=== PATIENT | female | born 1965 | race Caucasian/White ===

== ENCOUNTER 2016-08-27 08:23 | Day surgery (SDC) | payer BC ==
[2016-08-25 12:30] VITALS: BMI 28.8
[~2016-08-27 08:23] MED LIST: LACTATED RINGERS 1,000 ML IV SCH; LIDOCAINE 1% 20 ML VIAL (10MG/ML) FOR IV START INTRADERMA PRN
[2016-08-27] MEDS ORDERED: LIDOCAINE 1% 20 ML VIAL (10MG/ML) FOR IV START INTRADERMA ONE (08:34)
[2016-08-27] MEDS ORDERED: LACTATED RINGERS 1,000 ML IV ONE (08:34)
[2016-08-27 08:39] VITALS: RESP 18; TEMP 98.7
[2016-08-27 08:50] LABS: Glucose,Whole Blood 276 mg/dL (75-99)
[2016-08-27] MEDS ORDERED: PROPOFOL 10 MG/ML 20 ML VIAL IV ONE (08:52)
[2016-08-27] MEDS ORDERED: LABETALOL 5 MG/ML VIAL MDV ONE (08:52)
[2016-08-27] MEDS ORDERED: LIDOCAINE 1% INJ 10MG/ML (20 ML MDV) ONE (08:52)
[2016-08-27] MEDS ORDERED: INSULIN LISPRO (humaLOG) 300 UNIT/3 ML VIAL SQ ONE (08:52)
--- NOTE | 2016-08-27 09:14 | P.PCN ---
Date of Procedure: 08/27/16 Procedure(s) Performed: Brief history: Patient is a pleasant 51-year-old white female, scheduled for an elective upper endoscopy as well as colonoscopy as a part of evaluation of long-standing history of gastric esophageal he for symptoms and screening for colorectal neoplasia. Procedure performed: Esophagogastroduodenoscopy with biopsy Colonoscopy Preoperative diagnosis: GERD Screening for colon cancer Anesthesia: MAC Procedure: After informed consent was obtained from the patient was brought into the endoscopy unit and IV conscious sedation was administered by anesthesia under continuous monitoring. Initially upper endoscopy was done. The Olympus GF 160 video endoscope was inserted inserted into the mouth and esophagus intubated without any difficulty and was gradually advanced into the stomach and duodenum and carefully examined. The bulb and second part of the duodenum appeared normal. The scope was then withdrawn into the stomach adequately insufflated with air and upon careful examination the antrum had mild gastritis and biopsies were done from this area. The body, cardia and fundus appeared normal. The scope was then withdrawn into the esophagus. The GE junction was located at 40 cm to the incisors. It appeared regular with no erythema erosions or ulcerations. Rest of the esophagus appeared normal. Patient tolerated the procedure well. At this time the patient continued to remain sedation. Initial digital rectal examination was normal. Olympus CF 160 video colonoscope was then inserted into the rectum and gradually advanced to the cecum without any difficulty. Careful examination was performed as the scope was gradually being withdrawn. The prep was excellent. The cecum, ascending colon, transverse colon, descending colon, sigmoid colon and rectum appeared normal. Retroflexion was performed in the rectum and no lesions were noted. Patient tolerated the procedure well. Impression: 1. Upper endoscopy revealed mild antral gastritis, no evidence of esophagitis or peptic ulcer disease. 2. Colonoscopy revealed normal exam with no evidence of colitis or colorectal neoplasia. Recommendations: Findings of this examination were discussed with the patient as well as her family. She was advised to follow with the biopsy results. She was advised to decrease the Prilosec to 20 mg twice daily and continue with Reglan as needed. She can have a repeat colonoscopy in 10 years. She will be seen in office in 4- 6 weeks.
[2016-08-27 09:34] LABS: Glucose,Whole Blood 241 mg/dL (75-99)
[2016-08-27 09:43] VITALS: BP 163/92; PULSE 86
== END 2016-08-27 10:16 | disposition home or self-care (01) ==
LOC: ORWHC2ENDO 08:23
PROVIDERS: ATTEND Internal Medicine Gastroenterology
DX: Z12.11 Encounter for screening for malignant neoplasm of colon (principal); K21.9 Gastro-esophageal reflux disease without esophagitis; K29.50 Unspecified chronic gastritis without bleeding; G47.33 Obstructive sleep apnea (adult) (pediatric); M79.7 Fibromyalgia; Z79.899 Other long term (current) drug therapy; Z79.1 Long term (current) use of non-steroidal anti-inflammatories (NSAID); Z88.2 Allergy status to sulfonamides
CPT/HCPCS: 88305; 88342; 43239; J2001; J2704; G0121; 99153

== ENCOUNTER → 2018-08-20 | Outpatient (CLI) | payer BC ==
--- NOTE | 2018-08-20 11:37 | US ---
EXAMINATION TYPE: US transvaginal DATE OF EXAM: 08/20/2018 COMPARISON: CT CLINICAL HISTORY: N95.0 POST MENOPAUSAL BLEEDING, R10.2 pelvic pain. TECHNIQUE: Transvaginal (TV) per physician's order; post menopausal bleeding x 2 episodes in past 6 months, no HRT per patient Date of LMP: NA EXAM MEASUREMENTS: Uterus: 6.7 x 3.5 x 2.6 cm Endometrial Stripe: 1.1 cm Right Ovary: 0.9 x 1.4 x 1.2cm Left Ovary: 0.8 x 2.1 x 1.0cm 1. Uterus: post menopausal (sonographic "fist" appearance); possible upper myometrial fibroid on michelle ge # [id number] and size = 1.0 x 0.8 x 1.1cm 2. Endometrium: limitedly seen,but heterogeneous in appearance and abnormally thickened as > 0.5cm w ith post menopausal bleeding symptoms. 3. Right Ovary: wnl 4. Left Ovary: wnl 5. Bilateral Adnexa: wnl 6. Posterior cul-de-sac: wnl IMPRESSION: 1. Abnormal endometrial thickness. Direct visualization with sampling is recommended in this patient with postmenopausal bleeding. 2. Probable 1.1 cm intramural leiomyoma.
== END ==
LOC: RADUSWWP 09:45
PROVIDERS: ATTEND Family Medicine
DX: R93.49 Abnormal radiologic findings on diagnostic imaging of other urinary organs (principal); N95.0 Postmenopausal bleeding; Z88.5 Allergy status to narcotic agent; Z88.2 Allergy status to sulfonamides
CPT/HCPCS: 76830

== ENCOUNTER → 2018-09-08 | Outpatient (CLI) | payer BC ==
--- NOTE | 2018-09-10 08:37 | MM ---
Reason for exam: screening (asymptomatic). History: Patient is postmenopausal. Physical Findings: A clinical breast exam by your physician is recommended on an annual basis and results should be correlated with mammographic findings. MG Screening Mammo w CAD Bilateral CC and MLO view(s) were taken. XCCL view(s) were taken of the right breast. No prior studies available for comparison. Subareolar nodular focal asymmetry right breast. Asymmetric density centrally left MLO view. ASSESSMENT: Incomplete: need additional imaging evaluation, BI-RAD 0 RECOMMENDATION: Special view mammogram of both breasts. If lesion persists on supplemental views, image directed ultrasound is recommended. [facility] will attempt to contact patient to return for supplemental views and ultrasound if indicated.
== END | disposition home or self-care (01) ==
LOC: RADMAMWWP 09:04
PROVIDERS: ATTEND Nurse Practitioner Women's Health
DX: Z12.31 Encounter for screening mammogram for malignant neoplasm of breast (principal)
CPT/HCPCS: 77067

== ENCOUNTER → 2018-11-24 | Outpatient (CLI) | payer BC ==
--- NOTE | 2018-11-24 12:13 | XR ---
EXAMINATION TYPE: XR cervical spine comp DATE OF EXAM: 11/24/2018 COMPARISON: NONE HISTORY: Pain TECHNIQUE: Four views are submitted. FINDINGS: The odontoid is intact. There are no compression deformities. The prevertebral soft tissue structur es are within normal limits. Loss of the normal cervical lordosis with degenerative disc disease at C5-6 and C6-C7 with facet arthropathy. Bilateral foraminal encroachment at these levels. IMPRESSION: 1. Severe degenerative disc disease C5-6 and C6-C7 with bilateral foraminal encroachment..
== END | disposition home or self-care (01) ==
LOC: RADXRMAIN 11:20
PROVIDERS: ATTEND Nurse Practitioner Women's Health
DX: M50.322 Other cervical disc degeneration at C5-C6 level (principal)
CPT/HCPCS: 72050

== ENCOUNTER → 2020-08-25 | Outpatient (CLI) | payer BC ==
--- NOTE | 2020-08-27 08:47 | XR ---
Right ankle HISTORY: Trauma and pain, 3 month history of fracture 3 views of the right ankle There is soft tissue swelling present. Small ossific density present distal to the medial malleolus i s noted. There is sclerotic density at the distal fibula which may be due to healing fracture. No alex dent dislocation. Plantar calcaneal spur is noted. IMPRESSION: Correlate for history of healing fracture distal fibula. There is small avulsion injury, chip fracture of the medial malleolus.
== END | disposition home or self-care (01) ==
LOC: RADXRMAIN 11:05
PROVIDERS: ATTEND Family Medicine
DX: S82.51XA Displaced fracture of medial malleolus of right tibia, initial encounter for closed fracture (principal)

== ENCOUNTER 2020-11-01 15:19 | Emergency (ER) | payer BC ==
[2020-11-01 15:23] VITALS: RESP 18
--- NOTE | 2020-11-01 16:13 | XR ---
EXAMINATION TYPE: XR chest 2V DATE OF EXAM: 11/01/2020 COMPARISON: 05/24/2016 INDICATION: Short of breath cough Covid exposure TECHNIQUE: Frontal and lateral views of the chest are obtained. FINDINGS: The heart size is normal. The pulmonary vasculature is normal. The lungs are clear. IMPRESSION: 1. No acute pulmonary process.
--- NOTE | 2020-11-01 19:33 | ED ---
General Adult HPI - General Chief complaint: Upper Respiratory Infection Stated complaint: Cough, SOB, COVID exposure Time Seen by Provider: 11/01/20 19:11 Source: patient, RN notes reviewed Mode of arrival: ambulatory Limitations: no limitations - History of Present Illness Initial comments: Well-appearing 55 -year-old female patient presents to the emergency room with complaints of sinus drainage and cough this morning. Patient states was diagnosed 2 days ago with covid here and given Bamlanivimab. Patient endorses nausea but no vomiting diarrhea or fever. No hematemesis, no hematochezia, no dyspnea. Patient with medical history of nlc-hregstu-uqzeiqxva diabetes, GERD, sleep apnea and uses CPAP machine, and fibromyalgia. Surgical history of cholecystectomy. Patient had right ankle surgery 3 weeks ago. -: hour(s) (10, woke up with cough and sinus congestion) Consistency: constant Improves with: rest Worsens with: none Associated Symptoms: cough (sinus congestion), loss of appetite (nausea, no vomiting) Treatments Prior to Arrival: none - Related Data Home Medications Medication Instructions Recorded Confirmed Atorvastatin [Lipitor] 20 mg PO DAILY 11/01/20 11/01/20 Cholecalciferol [Vitamin D3 (25 25 mcg PO DAILY 11/01/20 11/01/20 Mcg = 1000 Iu)] Cyclobenzaprine [Flexeril] 5 mg PO TID PRN 11/01/20 11/01/20 Dapagliflozin/Saxagliptin HCl 1 tab PO DAILY 11/01/20 11/01/20 [Qtern 10 mg-5 mg Tablet] Allergies Allergy/AdvReac Type Severity Reaction Status Date / Time sulfamethoxazole Allergy Swelling/ra Verified 11/01/20 19:56 [From Bactrim] sh trimethoprim [From Bactrim] Allergy Swelling Verified 11/01/20 19:56 Review of Systems ROS Statement: Those systems with pertinent positive or pertinent negative responses have been documented in the HPI. ROS Other: All systems not noted in ROS Statement are negative. Past Medical History Past Medical History: Diabetes Mellitus, Fibromyalgia, GERD/Reflux, Sleep Apnea/CPAP/BIPAP Additional Past Medical History / Comment(s): FREQUENT NAUSEA, states sleep apnea, no machine, History of Any Multi-Drug Resistant Organisms: None Reported Past Surgical History: Section, Cholecystectomy Past Anesthesia/Blood Transfusion Reactions: No Reported Reaction Past Psychological History: Depression Smoking Status: Never smoker Past Alcohol Use History: Occasional Past Drug Use History: None Reported - Past Family History Mother Family Medical History: No Reported History General Exam Limitations: no limitations General appearance: alert, in no apparent distress Head exam: Present: atraumatic, normocephalic, normal inspection Eye exam: Present: normal appearance, PERRL, EOMI. Absent: scleral icterus, conjunctival injection, periorbital swelling Neck exam: Present: normal inspection, full ROM. Absent: tenderness, meni ngismus, lymphadenopathy Respiratory exam: Present: normal lung sounds bilaterally. Absent: respiratory distress, wheezes, rales, rhonchi, stridor Cardiovascular Exam: Present: regular rate, normal rhythm, normal heart sounds. Absent: systolic murmur, diastolic murmur, rubs, gallop, clicks, JVD GI/Abdominal exam: Present: soft, normal bowel sounds. Absent: distended, tenderness, guarding, rebound, rigid Extremities exam: Present: normal inspection, full ROM, normal capillary refill. Absent: tenderness, pedal edema, joint swelling, calf tenderness Right Ankle exam: Absent: tenderness, swelling, abrasion (healing surgical scar, no cellulitis, streaking or drainage), ecchymosis, deformity, erythema Neurological exam: Present: alert, oriented X3, CN II-XII intact Psychiatric exam: Present: normal affect, normal mood Skin exam: Present: warm, dry, intact, normal color. Absent: rash Course Vital Signs 11/01/20 11/01/20 11/01/20 15:21 19:40 21:00 Temperature 98.7 F 98.0 F Pulse Rate 85 68 Respiratory 18 18 18 Rate Blood Pressure 184/99 168/70 O2 Sat by Pulse 100 100 Oximetry Medical Decision Making - Medical Decision Making Patient with no complications after receiving Bamlanivimab infusion. Case discussed with Dr. Carrasquillo will discharge patient to follow up with primary care doctor and return to the emergency room if worsening symptoms with the fever, shortness of breath or chest pain. - Lab Data Lab Results 11/01/20 Range/Units 15:54 Coronavirus (PCR) Detected A (Not Detectd) - EKG Data EKG shows normal: sinus rhythm Rate: normal (EKG compared with old EKG dated May 2016, nsr with ventricular rate of 65, [place] 0.15, QRS of 0.94, QTc of 0.474) Disposition Clinical Impression: COVID-19 Disposition: HOME SELF-CARE Condition: Good Instructions (If sedation given, give patient instructions): Coronavirus Disease 2019 (COVID-19) Additional Instructions: Return to the emergency room if you have any increased shortness of breath, chest pain, or worsening illness. Is patient prescribed a controlled substance at d/c from ED?: No Referrals: Yamil Dorantes MD [Primary Care Provider] - 1-2 days Time of Disposition: 22:40
[2020-11-01] MEDS ORDERED: BAMLANIVIMAB 700 MG in SODIUM CHLORIDE 0.9% 50 ML IVPB ONE (20:15)
[2020-11-01 22:50] VITALS: BP 154/87; PULSE 82; TEMP 98.4
== END 2020-11-01 22:50 | disposition home or self-care (01) ==
LOC: EC 15:19
DX: U07.1 COVID-19 (principal); E11.9 Type 2 diabetes mellitus without complications; K21.9 Gastro-esophageal reflux disease without esophagitis; F32.9 Major depressive disorder, single episode, unspecified; Z79.899 Other long term (current) drug therapy
CPT/HCPCS: 93005; 87635; 71046; 99285; 96374; Q0239

== ENCOUNTER → 2022-03-14 | Outpatient (CLI) | payer BC ==
--- NOTE | 2022-03-14 07:43 | MM ---
Reason for Exam: Clinical finding. Last mammogram was performed 3 year(s) and 7 month(s) ago. Indicated Problems: Lump or thickening of the right side for 1 Week(s). Patient History: Menarche at age 15. First Full-Term at age 19. Postmenopausal. Patient used Hormonal Contraceptives for 25 years. Risk Values: Meagan 5 year model risk: 0.8%. NCI Lifetime model risk: 5.3%. Prior Study Comparison: 09/08/2018 Bilateral Screening Mammogram, [facility]. Tissue Density: The breast tissue is heterogeneously dense. This may lower the sensitivity of mammography. Findings: Analyzed By CAD. There is 11 mm focal in the right breast subareolar region near site of palpable abnormality. Overall Assessment: Incomplete: need additional imaging evaluation, BI-RAD 0 Management: Diagnostic Breast Ultrasound of the right breast. Targeted ultrasound now. Electronically signed and approved by: Pasquale Stallworth M.D.
--- NOTE | 2022-03-14 08:16 | USB ---
Patient History: Menarche at age 15. First Full-Term at age 19. Postmenopausal. Patient used Hormonal Contraceptives for 25 years. Risk Values: Meagan 5 year model risk: 0.8%. NCI Lifetime model risk: 5.3%. Prior Study Comparison: 09/08/2018 Bilateral Screening Mammogram, [facility]. Findings: The area of palpable concern of the right breast, the axilla of the right breast and the retroareolar of the right breast were scanned. Targeted ultrasound shows 8 x 7 mm area of predominant anechoic tissue could reflect septated thin-walled cyst. Overall Assessment: Probably benign, BI-RAD 3 Management: Diagnostic Mammogram of the right breast in 6 months. Diagnostic Breast Ultrasound of the right breast in 6 months. Area fairly stable in appearance from 2019 mammogram suggesting probable benign etiology. Suspect thin-walled septated cyst. Precautionary diagnostic right breast mammogram and ultrasound follow-up advised. Electronically signed and approved by: Pasquale Stallworth M.D.
== END | disposition home or self-care (01) ==
LOC: RADMAMWWP 07:02
PROVIDERS: ATTEND Family Medicine
DX: R92.8 Other abnormal and inconclusive findings on diagnostic imaging of breast (principal); N63.13 Unspecified lump in the right breast, lower outer quadrant; Z78.0 Asymptomatic menopausal state
CPT/HCPCS: 77066

== ENCOUNTER → 2024-01-02 | Outpatient (CLI) | payer BC ==
--- NOTE | 2024-01-02 09:28 | CT ---
EXAMINATION TYPE: CT sinus wo con DATE OF EXAM: 01/02/2024 COMPARISON: None HISTORY: CHRONIC SINUSITIS AND EAR PROBLEMS. CT DLP: 590.10 mGycm CONTRAST: 0 mL of Isovue 300 The paranasal sinuses are examined in the axial plane at 2 mm thick sections. Reconstructed images i n the coronal plane were obtained. The maxillary sinuses are clear. The ethmoid air cells are clear. The sphenoid sinuses are clear. The frontal sinuses are clear. Right-sided Reshma air cells are present. The septum is evaluated. No significant septal deviation. The ostiomeatal units are patent. There is a left uncinate pedro bullosa. IMPRESSION: 1. Unremarkable sinus study.
== END | disposition home or self-care (01) ==
LOC: RADCTMAIN 08:45
PROVIDERS: ATTEND Otolaryngology
DX: J32.0 Chronic maxillary sinusitis (principal); H93.90 Unspecified disorder of ear, unspecified ear
CPT/HCPCS: 70486

== ENCOUNTER → 2024-04-02 | Outpatient (CLI) | payer BC ==
--- NOTE | 2024-04-27 09:18 | XR ---
Report Patient: Courtney Lomeli L Ordering Physician: Unknown, Unknown ID: [id number] Phone, Pager: Phone: N/A Pager: N/A : 1965 Age/Gender: 59Y, F Primary Location: N/A Procedure: XR sacrum coccyx Study Date: 04/02/2024 12:36:00 PM EXAMINATION TYPE: XR sacrum coccyx 3 views DATE OF EXAM: 04/02/2024 Comparison: None Clinical History: 59-year-old female low back pain Findings: Suggestion of mild degenerative spurring at the SI joints. No subarticular erosion is seen. Pubic sym physis appears intact. Small delineation to the arcuate lines of the sacrum. Mild degenerative disc d isease better noted at L5-S1 on these coned in views. The distal coccyx is excluded from view. No dis placed or angulated sacral/coccygeal fracture of the visualized portions. Impression: 1. Suggestion of mild degenerative change of the SI joints. 2. Mild degenerative disc disease L5-S1 better demonstrated on these coned in views. 3. Distal coccyx is excluded from view and not assessed. No tailbone fracture of the visualized porti ons.
--- NOTE | 2024-04-27 09:18 | XR ---
Report Patient: Courtney Lomeli L Ordering Physician: Unknown, Unknown ID: [id number] Phone, Pager: Phone: N/A Pager: N/A : 1965 Age/Gender: 59Y, F Primary Location: N/A Procedure: LUMBOSACRAL COMPLETE INCLUDING BENDING VIEWS Study Date: 04/02/2024 12:36:00 PM EXAMINATION TYPE: XR lumbar spine with bend/flex, 7 views DATE OF EXAM: 04/02/2024 Comparison: None Clinical History: 59 year-old female low back pain Findings: Surgical clips right upper quadrant. 5 lumbar type vertebral bodies. Moderate facet arthropathy lower lumbar spine. Mild endplate spondylosis throughout. Mild degenerative disc space narrowing L1-L2. Ve rtebral body heights are preserved and alignment is maintained. There is no malalignment or dynamic s ubluxation on flexion-extension. Impression: 1. No vertebral compression collapse. 2. Mild degenerative disc disease L1-L2. Moderate facet arthropathy lower lumbar spine. 3. No malalignment or dynamic subluxation on flexion-extension.
== END | disposition home or self-care (01) ==
LOC: RADXRMAIN 12:26
PROVIDERS: ATTEND Family Medicine
DX: M51.37 Other intervertebral disc degeneration, lumbosacral region (principal); M47.816 Spondylosis without myelopathy or radiculopathy, lumbar region
CPT/HCPCS: 72114; 72220

== ENCOUNTER → 2024-06-08 | Outpatient (CLI) | payer BC ==
[2024-06-08 13:35] LABS: Basophils % (A) 1 %; Eosinophils # (A) 0.1 k/uL (0-0.7); Eosinophils % (A) 2 %; HCT 41.8 % (34.0-46.0); HGB 13.4 gm/dL (11.4-16.0); Lymphocytes # (A) 1.1 k/uL (1.0-4.8); Lymphocytes % (A) 20 %; MCV 97.1 fL (80.0-100.0); Monocytes # (A) 0.2 k/uL (0-1.0); Monocytes % (A) 3 %; Neutrophils # (A) 3.8 k/uL (1.3-7.7); Neutrophils % (A) 73 %; Platelet Count 220 k/uL (150-450); RDW 13.2 % (11.5-15.5); WBC 5.2 k/uL (3.8-10.6)
[2024-06-08 13:45] LABS: Carbon Dioxide 24 mmol/L (22-30); Chloride 102 mmol/L (98-107); Glucose 244 mg/dL (74-99); Potassium 4.5 mmol/L (3.5-5.1); Sodium 135 mmol/L (137-145)
[2024-06-08 13:46] LABS: ALT 65 U/L (4-34); AST 96 U/L (14-36); African American GFR (CKD) 89 (>60 ml/min/1.73 sqM); Albumin 4.5 g/dL (3.5-5.0); Alkaline Phosphatase 118 U/L (38-126); Anion Gap 9 mmol/L; Blood Urea Nitrogen 24 mg/dL (7-17); Calcium 9.2 mg/dL (8.4-10.2); Non-African American GFR(CKD) 77 (>60 ml/min/1.73 sqM); Total Bilirubin 0.4 mg/dL (0.2-1.3); Total Protein 6.9 g/dL (6.3-8.2)
--- NOTE | 2024-06-08 14:50 | FL ---
Exam Date: 06/08/2024 11:49 AM. Modified barium swallow for dysphagia. Consistencies administered: Various consistency of barium. Fluoro time: 51 sec No images were sent to PACS. Please see speech pathology report. DAP: not recorded mGym2 Gycm2 [facility], , 06/08/2024 2:48 PM
[2024-06-08 19:06] LABS: Gliadin AB IgA, Deaminated Negative (Negative); Gliadin AB IgA, Unit 1.6 U/mL; Gliadin AB IgG, Deaminated Negative (Negative); Gliadin AB IgG, Unit <0.4 U/mL
== END | disposition home or self-care (01) ==
LOC: RADFLMAIN 11:27
PROVIDERS: ATTEND Internal Medicine Gastroenterology
CPT/HCPCS: 74230; 80053; 83516; 85025

== ENCOUNTER 2024-08-02 06:13 | Day surgery (SDC) | payer BC ==
[2024-08-02] MEDS ORDERED: LIDOCAINE 1% (10MG/ML) FOR IV START INTRADERMA PRN (06:50)
[2024-08-02 06:54] VITALS: RESP 16; TEMP 97.3
[2024-08-02] MEDS: LACTATED RINGERS 1,000 ML IV SCH (06:54)
[2024-08-02] MEDS: IV FLUID CONTINUATION 1,000 ML IV ONE (06:55)
[2024-08-02 07:10] LABS: Glucose,Whole Blood 125 mg/dL (70-110)
[2024-08-02] MEDS ORDERED: LIDOCAINE 1% INJ 10MG/ML (20 ML MDV) ONE (07:23)
[2024-08-02] MEDS ORDERED: PROPOFOL 10 MG/ML 20 ML VIAL IV ONE (07:23)
--- NOTE | 2024-08-02 07:44 | P.PCN ---
Date of Procedure: 08/02/24 Procedure(s) Performed: Brief history: Patient is a pleasant 59-year-old white female scheduled for an elective upper endoscopy as well as colonoscopy as a part of evaluation of dysphagia/throat irritation and chronic diarrhea for the last 4 months duration Procedure performed: Esophagogastroduodenoscopy biopsy Colonoscopy with biopsy and snare polypectomy Preoperative diagnosis: Dysphagia and throat irritation Chronic diarrhea Anesthesia: MAC Procedure: After informed consent was obtained from the patient was brought into the endoscopy unit and IV sedation was administered by anesthesia under continuous monitoring. Initially upper endoscopy was done. The Olympus GF 160 video endoscope was inserted inserted into the mouth and esophagus intubated without any difficulty and was gradually advanced into the stomach and duodenum and carefully examined. The bulb and second part of the duodenum appeared normal. Biopsies were done from the duodenum to rule out celiac disease. The scope was then withdrawn into the stomach adequately insufflated with air and upon careful examination the antrum mild gastritis and biopsies were done from this area. Mucosa body, cardia and fundus appeared normal. The scope was then withdrawn into the esophagus. The GE junction was located at 40 cm to the incisors. It appeared regular with no erythema erosions or ulcerations. Rest of the esophagus appeared normal. Patient tolerated the procedure well. At this time the patient continued to remain sedation. Initial digital rectal examination was normal. Olympus CF 160 video colonoscope was then inserted into the rectum and gradually advanced to the cecum without any difficulty. Careful examination was performed as the scope was gradually being withdrawn. The prep was excellent. The cecum, ascending colon, transverse colon, descending colon, nondistended sigmoid colon there was a 7 mm polyp that was removed by cold snare polypectomy. Rest of the sigmoid colon and rectum appeared normal. Biopsies were done from the ascending and descending colon to rule out microscopic/collagenous colitis retroflexion was performed in the rectum and no lesions were noted. Patient tolerated the procedure well. Impression: 1. Upper endoscopy revealed mild antral gastritis but no evidence of e sophagitis or peptic ulcer disease 2. Colonoscopy revealed 7 mm sigmoid colon polyp status post cold snare polypectomy and the rest of the colon appeared normal Recommendations: Findings of this examination were discussed with the patient as well as her family. She was advised to follow-up with the biopsy results. If the biopsy reveals adenoma she can have repeat colonoscopy 5 years.. She will follow-up in the office in 2 weeks.
[2024-08-02 08:21] VITALS: BP 130/85; PULSE 65
== END 2024-08-02 08:46 | disposition home or self-care (01) ==
LOC: ORWHC2ENDO 06:13
PROVIDERS: ATTEND Internal Medicine Gastroenterology
DX: D12.5 Benign neoplasm of sigmoid colon (principal); D72.820 Lymphocytosis (symptomatic); K31.9 Disease of stomach and duodenum, unspecified; I10 Essential (primary) hypertension; G47.33 Obstructive sleep apnea (adult) (pediatric); E11.9 Type 2 diabetes mellitus without complications; M79.7 Fibromyalgia; K21.9 Gastro-esophageal reflux disease without esophagitis; Z79.899 Other long term (current) drug therapy; Z88.1 Allergy status to other antibiotic agents
CPT/HCPCS: 88305; 45380; 45385; 43239; J2003; J2704

== ENCOUNTER → 2024-10-17 | Outpatient (CLI) | payer BC ==
--- NOTE | 2024-10-17 09:39 | MM ---
Reason for Exam: Screening (asymptomatic). Last mammogram was performed 2 year(s) and 7 month(s) ago. Patient History: Menarche at age 15. First Full-Term at age 19. Postmenopausal. Patient has history of breast feeding. Patient used Hormonal Contraceptives for 25 years. Risk Values: Meagan 5 year model risk: 0.9%. NCI Lifetime model risk: 5.1%. Prior Study Comparison: 09/08/2018 Bilateral Screening Mammogram, [facility]. 03/14/2022 Bilateral MG diagnostic mammo w CAD INGE, [facility]. Tissue Density: The breasts are heterogeneously dense, which may obscure small masses. Findings: Analyzed By CAD. There is no suspicious group of microcalcifications or new suspicious mass in either breast. Overall Assessment: Negative, BI-RAD 1 Management: Screening Mammogram of both breasts in 1 year. . Patient should continue monthly self-breast exams. A clinical breast exam by your physician is recommended on an annual basis. This exam should not preclude additional follow-up of suspicious palpable abnormalities. Note on Meagan scores and lifetime risk: 1. A Meagan score greater than 3% is considered moderate risk. If this is the case, consider specialist referral to assess eligibility for a risk reducing agent. 2. If overall lifetime risk for the development of breast cancer is 20% or higher, the patient may qualify for future screening with alternating mammogram and breast MRI. [facility], , 10/17/2024 9:36 AM. Electronically signed and approved by: Josh Acosta M.D. [facility]
== END | disposition home or self-care (01) ==
LOC: RADMAMWWP 08:08
PROVIDERS: ATTEND Family Medicine
DX: Z12.31 Encounter for screening mammogram for malignant neoplasm of breast (principal); R92.333 Mammographic heterogeneous density, bilateral breasts; Z78.0 Asymptomatic menopausal state; Z92.0 Personal history of contraception
CPT/HCPCS: 77063; 77067

== ENCOUNTER 2025-01-18 14:59 | Emergency (ER) | payer BC ==
--- NOTE | 2025-01-18 15:30 | ED ---
Abdominal Pain HPI - General Source: patient, RN notes reviewed Mode of arrival: ambulatory Limitations: no limitations <Jimmy Michael - Last Filed: 01/18/25 15:29> <Muna Su - Last Filed: 01/31/25 23:55> - General Chief Complaint: Abdominal Pain Stated Complaint: L sided flank pain Time Seen by Provider: 01/18/25 15:08 - History of Present Illness Initial Comments: Quick [id number] female presents emergency department complaint of left- sided abdominal pain, flank pain. Patient states certain side as wrap approximately the abdomen. She states she did have nausea vomiting no dysuria no definite history of kidney stones patient's had prior cholecystectomy no chest pain or shortness of breath (Jimmy Michael) 60-year-old female presents emergency department reporting left flank pain. States that the pain starts in her flank and wraps around to the anterior part of her abdomen. Has associated nausea with vomiting. No dysuria, hematuria or difficulty voiding. No history of kidney stones. History of previous cholecystectomy. No diarrhea, constipation, black or bloody stools. No abnormal vaginal bleeding or discharge denies any palliative or provocative factors. No other alleviating, precipitating or modifying factors (Muna Su) - Related Data Home Medications Medication Instructions Recorded Confirmed Atorvastatin [Lipitor] 20 mg PO DAILY 11/01/20 08/01/24 Cyclobenzaprine [Flexeril] 5 mg PO TID PRN 11/01/20 08/01/24 Empagliflozin [Jardiance] 10 mg PO DAILY 08/01/24 08/02/24 Montelukast [Singulair] 10 mg PO DAILY 08/01/24 08/01/24 Omeprazole 20 mg PO BID 08/01/24 08/01/24 Sertraline [Zoloft] 75 mg PO DAILY 08/01/24 08/01/24 Tirzepatide [Mounjaro] 2.5 mg SQ Q7D 08/01/24 08/01/24 lisinopriL [Zestril] 10 mg PO DAILY 08/01/24 08/02/24 Previous Rx's Medication Instructions Recorded Sucralfate [Carafate] 1 gm PO ACHS #28 tab 01/18/25 Allergies Allergy/AdvReac Type Severity Reaction Status Date / Time sulfamethoxazole Allergy Swelling/ra Verified 08/02/24 06:50 [From Bactrim] sh trimethoprim [From Bactrim] Allergy Swelling Verified 08/02/24 06:50 Review of Systems ROS Other: All systems not noted in ROS Statement are negative. <Jimmy Michael - Last Filed: 01/18/25 15:29> ROS Other: All systems not noted in ROS Statement are negative. <Muna Su - Last Filed: 01/31/25 23:55> ROS Statement: Those systems with pertinent positive or pertinent negative responses have been documented in the HPI. Past Medical History Past Medical History: Diabetes Mellitus, Fibromyalgia, GERD/Reflux, Sleep Apnea/CPAP/BIPAP Additional Past Medical History / Comment(s): states sleep apnea-no machine, frequent nausea, constantly feels like she needs to clear her throat History of Any Multi-Drug Resistant Organisms: None Reported Past Surgical History: Section, Cholecystectomy Additional Past Surgical History / Comment(s): colonoscopy, Rt. ankle surgery Past Anesthesia/Blood Transfusion Reactions: No Reported Reaction Past Psychological History: Depression Smoking Status: Former smoker - Past Family History Mother Family Medical History: No Reported History <DenniseJimmy krueger - Last Filed: 01/18/25 15:29> General Exam Limitations: no limitations <Jimmy Michael - Last Filed: 01/18/25 15:29> General appearance: alert, in no apparent distress Head exam: Present: atraumatic, normocephalic, normal inspection Eye exam: Present: normal appearance, PERRL, EOMI. Absent: scleral icterus, conjunctival injection, periorbital swelling ENT exam: Present: normal exam, mucous membranes moist Neck exam: Present: normal inspection. Absent: tenderness, meningismus, lymphadenopathy Respiratory exam: Present: normal lung sounds bilaterally. Absent: respiratory distress, wheezes, rales, rhonchi, stridor Cardiovascular Exam: Present: regular rate, normal rhythm, normal heart sounds. Absent: systolic murmur, diastolic murmur, rubs, gallop, clicks GI/Abdominal exam: Present: soft, normal bowel sounds. Absent: distended, tenderness, guarding, rebound, rigid Extremities exam: Present: normal inspection, full ROM, normal capillary refill. Absent: tenderness, pedal edema, joint swelling, calf tenderness Back exam: Present: normal inspection Neurological exam: Present: alert, oriented X3, CN II-XII intact Psychiatric exam: Present: normal affect, normal mood Skin exam: Present: warm, dry, intact, normal color. Absent: rash <Muna Su - Last Filed: 01/31/25 23:55> - General Exam Comments Initial Comments: Visual Physical Exam Vital signs reviewed General: Well-appearing, nontoxic, no acute distress. Head: Normocephalic, atraumatic Eyes: PERRLA, EOMI ENT: Airway patent Chest: Nonlabored breathing Skin: No visual rash, normal skin tone Neuro: Alert and oriented 3 Musculoskeletal: No gross abnormalities (Jimmy Michael) Course Vital Signs 01/18/25 01/18/25 01/19/25 15:10 19:42 00:01 Temperature 98.4 F 98.0 F 97.8 F Pulse Rate 83 66 78 Respiratory 16 19 18 Rate Blood Pressure 108/62 127/83 115/79 O2 Sat by Pulse 99 98 99 Oximetry Medical Decision Making <Jimmy Michael - Last Filed: 01/18/25 15:29> - Lab Data Result diagrams: 01/18/25 15:38 01/18/25 15:38 <Muna Su - Last Filed: 01/31/25 23:55> - Medical Decision Making I completed the quick note portion of this chart signed Jimmy Michael PA-C (Jimmy Michael) Was pt. sent in by a medical professional or institution ([facility], REGISTRATION REP, urgent care, hospital, or group home...) When possible be specific @ -No Did you speak to anyone other than the patient for history (EMS, parent, family, police, friend...)? What history was obtained from this source @ -No Did you review nursing and triage notes (agree or disagree)? Why? @ -I reviewed and agree with nursing and triage notes Were old charts reviewed (outside hosp., previous admission, EMS record, old EKG, old radiological studies, urgent care reports/EKG's, group home records)? Report findings @ -I reviewed the patient's colonoscopy report from July 2020 for Differential Diagnosis (chest pain, altered mental status, abdominal pain women, abdominal pain men, vaginal bleeding, weakness, fever, dyspnea, syncope, headache, dizziness, GI bleed, back pain, seizure, CVA, palpatations, mental health, musculoskeletal)? @ -Differential Abdominal Pain Women: Appendicitis, Cholecystitis, diverticulosis, ischemic bowel, pancreatitis, hepatitis, UTI, gastroenteritis, AAA, incarcerated hernia, bowel obstruction, constipation, inflammatory bowel, hepatitis, peptic ulcer disease, splenic infarction, perforated viscus, vulvitis, ovarian torsion, PID, kidney stone, placenta abruption, this is not meant to be an all-inclusive list EKG interpreted by me (3pts min.). @ -Not done X-rays interpreted by me (1pt min.). @ -None done CT interpreted by me (1pt min.). @ -Yes which demonstrates no acute process U/S interpreted by me (1pt. min.). @ -None done What testing was considered but not performed or refused? (CT, X-rays, U/S, labs)? Why? @ -None What meds were considered but not given or refused? Why? @ -None Did you discuss the management of the patient with other professionals (professionals i.e. , PA, REGISTRATION REP, lab, RT, psych nurse, social service assistant, human resources team member, teacher, legal officer, medical case manager)? Give summary @ -No Was smoking cessation discussed for >3mins.? @ -No Was critical care preformed (if so, how long)? @ -No Were there social determinants of health that impacted care today? How? (Homelessness, low income, unemployed, alcoholism, drug addiction, transportation, low edu. Level, literacy, decrease access to med. care, longterm, rehab)? @ -No Was there de-escalation of care discussed even if they declined (Discuss DNR or withdrawal of care, Hospice)? DNR status @ -No What co-morbidities impacted this encounter? (DM, HTN, Smoking, COPD, CAD, Cancer, CVA, ARF, Chemo, Hep., AIDS, mental health diagnosis, sleep apnea, morbid obesity)? @ -None Was patient admitted / discharged? Hospital course, mention meds given and route, prescriptions, significant lab abnormalities, going to OR and other pertinent info. @ -Upon arrival patient seen and evaluated in bed 29. Thorough history and physical exam was performed. IV access was established. Laboratory studies are conducted. CT was performed. I discussed results with the patient. I discussed the differential. Patient will be placed on Carafate at this time to see if it helps alleviate some of her symptoms. She is to follow-up with her doctor in 2 to 4 days. May need further imaging studies if pain persists including a repeat EGD. Return for any new or worsening symptoms. Patient agreeable to plan she was discharged in stable condition Undiagnosed new problem with uncertain prognosis? @ -No Drug Therapy requiring intensive monitoring for toxicity (Heparin, Nitro, Insulin, Cardizem)? @ -No Were any procedures done? @ -No Diagnosis/symptom? @ -Acute left flank pain Acute, or Chronic, or Acute on Chronic? @ -Acute Uncomplicated (without systemic symptoms) or Complicated (systemic symptoms)? @ -Complicated Side effects of treatment? @ -No Exacerbation, Progression, or Severe Exacerbation? @ -No Poses a threat to life or bodily function? How? (Chest pain, [place], [place], pneumonia, PE, COPD, DKA, ARF, appy, cholecystitis, CVA, Diverticulitis, Homicidal, Suicidal, threat to staff... and all critical care pts) @ -No (Muna Su) - Lab Data Lab Results 01/18/25 01/18/25 01/18/25 Range/Units 15:23 15:38 15:38 WBC 6.12 (4.50-10.00) 10*3/uL RBC 4.26 (4.10-5.20) 10*6/uL Hgb 13.6 (12.0-15.0) g/dL Hct 40.1 (37.2-46.3) % MCV 94.1 (80.0-97.0) fL MCH 31.9 (27.0-32.0) pg MCHC 33.9 (32.0-37.0) g/dL Plt Count 247 (140-440) 10*3/uL MPV 9.9 (9.5-12.2) fL Immature Gran % (Auto) 0.3 % Neutrophils % 75.3 % Lymphocytes % 18.8 % Monocytes % 4.1 % Eosinophils % 1.0 % Basophils % 0.5 % Immature Gran # 0.02 (0.00-0.04) 10*3/uL Neutrophils # 4.61 (1.80-7.70) 10*3/uL Lymphocytes # 1.15 (0.90-5.00) 10*3/uL Monocytes # 0.25 (0.20-1.00) 10*3/uL Eosinophils # 0.06 (0.04-0.35) 10*3/uL Basophils # 0.03 (0.00-0.10) 10*3/uL Sodium 136 L (137-145) mmol/L Potassium 4.7 (3.5-5.1) mmol/L Chloride 102 (98-107) mmol/L Carbon Dioxide 20 L (22-30) mmol/L Anion Gap 14 mmol/L BUN 12 (7-17) mg/dL Creatinine 0.58 (0.52-1.04) mg/dL Est GFR (CKD-EPI)AfAm >90 (>60 ml/min/1.73 sqM) Est GFR (CKD-EPI)NonAf >90 (>60 ml/min/1.73 sqM) Glucose 162 H (74-99) mg/dL Calcium 9.6 (8.4-10.2) mg/dL Total Bilirubin 0.6 (0.2-1.3) mg/dL AST 43 H (14-36) U/L ALT 30 (4-34) U/L Alkaline Phosphatase 121 (38-126) U/L Total Protein 7.4 (6.3-8.2) g/dL Albumin 4.8 (3.5-5.0) g/dL Amylase 35 (30-110) U/L Lipase 123 (23-300) U/L Urine Color Colorless Urine Appearance Clear (Clear) Urine pH 6.5 (5.0-8.0) Ur Specific [place] 1.005 (1.001-1.035) Urine Protein Negative (Negative) Urine Glucose (UA) 4+ H (Negative) Urine Ketones Negative (Negative) Urine Blood Negative (Negative) Urine Nitrite Negative (Negative) Urine Bilirubin Negative (Negative) Urine Urobilinogen <2.0 (<2.0) mg/dL Ur Leukocyte Esterase Negative (Negative) Disposition <Jimmy Michael - Last Filed: 01/18/25 15:29> Is patient prescribed a controlled substance at d/c from ED?: No Time of Disposition: 23:50 <Muna Su - Last Filed: 01/31/25 23:55> Clinical Impression: Abdominal pain Disposition: HOME SELF-CARE Condition: Stable Instructions (If sedation given, give patient instructions): Abdominal Pain (ED) Additional Instructions: Please avoid spicy foods, chocolate, NSAIDs (medications such as Motrin). Make an appointment with Dr. Wolf for possible repeat EGD. Decrease your dose of Mounjaro back down to 5. Begin taking the Benefiber. Return for any new or worsening symptoms Prescriptions: Sucralfate [Carafate] 1 gm PO ACHS #28 tab Referrals: Yamil Dorantes MD [Primary Care Provider] - 1-2 days Milla Peña MD [STAFF PHYSICIAN] - 1-2 days
[2025-01-18 15:52] LABS: Basophils # (A) 0.03 10*3/uL (0.00-0.10); Basophils % (A) 0.5 %; Eosinophils # (A) 0.06 10*3/uL (0.04-0.35); HCT 40.1 % (37.2-46.3); HGB 13.6 g/dL (12.0-15.0); Lymphocytes # (A) 1.15 10*3/uL (0.90-5.00); Lymphocytes % (A) 18.8 %; MCH 31.9 pg (27.0-32.0); MCHC 33.9 g/dL (32.0-37.0); MCV 94.1 fL (80.0-97.0); Mean Platelet Volume 9.9 fL (9.5-12.2); Monocytes # (A) 0.25 10*3/uL (0.20-1.00); Monocytes % (A) 4.1 %; Neutrophils # (A) 4.61 10*3/uL (1.80-7.70); Neutrophils % (A) 75.3 %; Platelet Count 247 10*3/uL (140-440); RBC 4.26 10*6/uL (4.10-5.20); RDW 12.9 % (11.5-14.5); WBC 6.12 10*3/uL (4.50-10.00)
[2025-01-18 15:56] LABS: Appearance,Urine Clear (Clear); Bilirubin,Urine Negative (Negative); Blood,Urine Negative (Negative); Color,Urine Colorless; Glucose,Urine (UA) 4+ (Negative); Ketones,Urine Negative (Negative); Leukocyte Esterase,Urine Negative (Negative); Nitrite,Urine Negative (Negative); PH, Urine 6.5 (5.0-8.0); Protein,Urine Negative (Negative); Specific Gravity,Urine 1.005 (1.001-1.035); Urobilinogen,Urine <2.0 mg/dL (<2.0)
[2025-01-18 16:08] LABS: ALT 30 U/L (4-34); AST 43 U/L (14-36); African American GFR (CKD) >90 (>60 ml/min/1.73 sqM); Albumin 4.8 g/dL (3.5-5.0); Alkaline Phosphatase 121 U/L (38-126); Amylase 35 U/L (30-110); Anion Gap 14 mmol/L; Blood Urea Nitrogen 12 mg/dL (7-17); Calcium 9.6 mg/dL (8.4-10.2); Carbon Dioxide 20 mmol/L (22-30); Chloride 102 mmol/L (98-107); Glucose 162 mg/dL (74-99); Lipase 123 U/L (23-300); Non-African American GFR(CKD) >90 (>60 ml/min/1.73 sqM); Potassium 4.7 mmol/L (3.5-5.1); Sodium 136 mmol/L (137-145); Total Bilirubin 0.6 mg/dL (0.2-1.3); Total Protein 7.4 g/dL (6.3-8.2)
[2025-01-18] MEDS: KETOROLAC 15 MG/ML 1 ML VIAL IVP STA (21:07)
[2025-01-18] MEDS: ONDANSETRON 4 MG/2 ML VIAL IVP STA (21:08)
--- NOTE | 2025-01-18 21:48 | CT ---
INDICATION: Patient age:Female; 59 years old; Reason for study: llq pain; PHH. COMPARISON: CT abdomen/pelvis 06/09/2016. TECHNIQUE: Standard CT of the abdomen and pelvis following the administration of IV contrast mci al. Please see chart for contrast amount and type. Coronal and sagittal reformats were performed. One or more CT dose reduction strategies were utilized during this examination. Total DLP administered w as 737.9 mGycm. FINDINGS: LOWER CHEST: Tiny punctate pulmonary nodules are seen in the lower lobes and are of doubtful clinical significance. ABDOMEN LIVER: Redemonstrated hypodense lesions in the right and left hepatic lobes incompletely evaluated pr eviously characterized as hemangiomas. Additional punctate hypodense foci are seen in the liver too s mall to characterize. Hypodense geographic area seen adjacent to the gallbladder fossa most likely re presenting fatty infiltration. GALLBLADDER AND BILE DUCTS: The gallbladder is surgically absent. PANCREAS: Unremarkable. SPLEEN: Unremarkable. ADRENAL GLANDS: Unremarkable. KIDNEYS AND URETERS: No evidence of hydronephrosis or renal calculus. The ureters are unremarkable. PELVIS URINARY BLADDER: Incompletely distended with mild circumferential wall thickening. There is subtle pe rivesicular fat stranding. REPRODUCTIVE: Bulky appearance of the fibroid redemonstrated. ABDOMEN & PELVIS STOMACH AND BOWEL: Stomach is grossly unremarkable. Small bowel is of normal caliber. The appendix is visualized and appears within normal limits. Fatty mucosal deposition within the proximal colon. No evidence of bowel obstruction. PERITONEUM: No evidence of pneumoperitoneum or free fluid. VASCULATURE: No aortic aneurysmal changes. MUSCULOSKELETAL: Mild degenerative disc disease changes are present throughout the thoracolumbar spin e. No acute osseous abnormalities. LYMPH NODES: Unremarkable. SOFT TISSUE/ABDOMINAL WALL: Unremarkable IMPRESSION: 1. Mild circumferential wall thickening of the urinary bladder with mild perivesicular fat stranding may relate to cystitis. Correlate with urinalysis. No other acute intra-abdominal/pelvic process. 2. Few other incidental findings as detailed above. [facility], , 01/18/2025 9:46 PM
[2025-01-18] MEDS: SUCRALFATE 1 GM TAB PO STA (23:44)
[2025-01-19 00:02] VITALS: BP 115/79; PULSE 78; RESP 18; TEMP 97.8
== END 2025-01-19 00:02 | disposition home or self-care (01) ==
LOC: EC 14:59
DX: R10.9 Unspecified abdominal pain (principal); Z87.891 Personal history of nicotine dependence; Z88.1 Allergy status to other antibiotic agents; Z88.2 Allergy status to sulfonamides
CPT/HCPCS: 36415; 80053; 82150; 83690; 85025; 81003; 74177; 99285; 96374; 96375; J2405; J1885; Q9967